=== PATIENT | male | born 1950 | race Caucasian/White ===

== ENCOUNTER 2020-10-22 10:27 | Outpatient (CLI) | payer MEDICARE, MEDICAID | END 2020-10-22 10:28 | disposition home or self-care (01) | LOC: COV 10:27 | PROVIDERS: ATTEND Family Medicine | DX: R05 Cough (principal); R06.02 Shortness of breath; M79.10 Myalgia, unspecified site; R53.83 Other fatigue; R68.83 Chills (without fever); R07.0 Pain in throat; R09.81 Nasal congestion; J34.89 Other specified disorders of nose and nasal sinuses; Z20.828 Contact with and (suspected) exposure to other viral communicable diseases ==

== ENCOUNTER 2021-12-01 08:00 | Outpatient (CLI) | payer MEDICARE, MEDICAID ==
--- NOTE | 2021-12-01 11:24 | XRAY Report ---
PROCEDURE: Chest 2 View X-Ray INDICATIONS: COUGH TECHNIQUE: 2 view(s) of the chest. COMPARISON: None. FINDINGS: SUPPORT DEVICES: None. LUNGS/PLEURA: No focal consolidation, pleural effusion or space-occupying pneumothorax. MEDIASTINUM: The cardiomediastinal silhouette is within normal limits. BONES/SOFT TISSUES: No acute abnormality. IMPRESSION: 1.No acute cardiopulmonary abnormality. Reviewed by: Oh Koenig MD on 12/01/2021 11:22 AM [facility] Approved by: Oh Koenig MD on 12/01/2021 11:22 AM [facility] Station ID: [id number]
== END 2021-12-01 23:59 ==
LOC: DI.S 08:00
PROVIDERS: ATTEND Registered Nurse
DX: R05.9 Cough, unspecified (principal); U07.1 COVID-19
CPT/HCPCS: 71046; U0004

== ENCOUNTER 2022-12-18 16:03 | Outpatient (CLI) | payer MEDICARE, MEDICAID | END 2022-12-18 16:04 | disposition critical access hospital (66) | LOC: EMS 16:03 | DX: R41.0 Disorientation, unspecified (principal); R51.9 Headache, unspecified; H53.8 Other visual disturbances | CPT/HCPCS: A0425; A0429 ==

== ENCOUNTER 2022-12-18 16:38 | Emergency (ER) | payer MEDICARE, MEDICAID ==
--- NOTE | 2022-12-18 16:52 | ED Physician Documentation ---
PD HPI ALTERED MENTAL STATUS - Stated complaint Stated Complaint: CONFUSION/BLURRY VISION - History obtained from History obtained from: Patient
[2022-12-18] MEDS ORDERED: ONDANSETRON 4 MG/2 ML VIAL IVP STA (17:44)
[2022-12-18] MEDS ORDERED: KETOROLAC 15 MG/ML VIAL IVP STA (17:44)
[2022-12-18] MEDS ORDERED: HYDROmorphone 0.5 MG/0.5 ML SYRINGE IVP STA ×2 (17:44→19:06)
[2022-12-18] MEDS ORDERED: SODIUM CHLORIDE 0.9% 1,000 ML IV STA (17:44)
--- NOTE | 2022-12-18 17:47 | ED Physician Documentation ---
PD HPI NVD - Stated complaint Stated Complaint: CONFUSION/BLURRY VISION - Chief complaint Chief Complaint: Neuro - History obtained from History obtained from: Patient - History of Present Illness Timing - onset: Today (about noon) Timing - duration: Hours Timing - details: Abrupt onset Associated symptoms: Fever, Loss of appetite, Other (He notes fairly abrupt onset of general malaise, nausea, vomiting associated with headache and general weakness. He states he did have some blurred vision with it. He denies persistent blurred vision or eye pain.). No: Abdominal pain, Chest pain Contributing factors: No: Sick contact, Travel, Anticoagulated, Diabetes Improved by: No: Vomiting (He has been having repetitive vomiting with persistent nausea. No abdominal pain per se. No diarrhea.) Worsened by: Eating Similar symptoms before: Has not had sx before Recently seen: Not recently seen Review of Systems Constitutional: reports: Fatigue. denies: Fever, Chills Eyes: reports: Decreased vision. denies: Loss of vision, Photophobia, Discharge, Irritation Nose: denies: Rhinorrhea / runny nose, Congestion Throat: denies: Sore throat Cardiac: denies: Chest pain / pressure Respiratory: denies: Cough GI: reports: Nausea, Vomiting. denies: Abdominal Pain Musculoskeletal: denies: Neck pain, Back pain Neurologic: reports: Generalized weakness, Confused (felt some difficulty concentrating earlier when vomiting.), Headache. denies: Focal weakness, Numbness, Head injury PD PAST MEDICAL HISTORY - Past Medical History Past Medical History: Yes Cardiovascular: Hypertension Respiratory: None Endocrine/Autoimmune: None - Allergies Allergies/Adverse Reactions: Allergies Allergy/AdvReac Type Severity Reaction Status Date / Time No Known Drug Allergies Allergy Verified 12/18/22 17:52 - Social History Does the pt smoke?: Yes Smoking Status: Current every day smoker Does the pt drink ETOH?: No Does the pt have substance abuse?: Yes Substance Use and Type: Marijuana - POLST Patient has POLST: No PD ED PE NORMAL - Vitals Vital signs reviewed: Yes - General General: Alert and oriented X 3, Well developed/nourished, Other (appears uncomfortable holding emesis bag with some vomiting between answering questions. ) - HEENT HEENT: Pharynx benign - Neck Neck: Supple, no meningeal sign, No adenopathy - Cardiac Cardiac: RRR, No murmur - Respiratory Respiratory: Clear bilaterally - Abdomen Abdomen: Normal bowel sounds, Non tender, Non distended, No organomegaly - Derm Derm: Warm and dry. No: Normal color (mild pallor) - Extremities Extremities: Normal ROM s pain - Neuro Neuro: Alert and oriented X 3, No motor deficit, Normal speech Results - Vitals Vitals: Vital Signs - 24 hr 12/18/22 12/18/22 16:47 21:39 Temperature 37.6 C 38.6 C H Heart Rate 73 Respiratory 20 Rate Blood Pressure 100/83 H O2 Saturation 100 Oxygen O2 Source Room air - Labs Labs: Laboratory Tests 12/18/22 12/18/22 12/18/22 18:33 18:33 18:33 WBC 8.4 RBC 4.34 L Hgb 12.6 L Hct 39.0 L MCV 89.9 MCH 29.0 MCHC 32.3 RDW 12.2 Plt Count 107 L MPV 11.1 Neut # (Auto) 6.8 H Lymph # (Auto) 1.0 L [place]ade # (Auto) 0.5 Eos # (Auto) 0.1 Baso # (Auto) 0.0 Absolute Nucleated RBC 0.00 Nucleated RBC % 0.0 ESR 11 Sodium 134 L Potassium 5.1 H Chloride 99 L Carbon Dioxide 25 Anion Gap 10.0 BUN 30 H Creatinine 1.5 H Estimated GFR (MDRD) 46 L Glucose 141 H Calcium 8.9 Magnesium 1.7 Total Bilirubin 0.7 AST 19 ALT 15 Alkaline Phosphatase 54 Total Protein 7.3 Albumin 4.1 Globulin 3.2 Albumin/Globulin Ratio 1.3 Lipase 71 H Nasal Adenovirus (PCR) Nasal B. parapertussis DNA (PCR) Nasal Coronavir 229E PCR Nasal Coronavir HKU1 PCR Nasal Coronavir NL63 PCR Nasal Coronavir OC43 PCR Nasal Enterovir/Rhinovir PCR Nasal Influenza B PCR Nasal Influenza A PCR Nasal Parainfluen 1 PCR Nasal Parainfluen 2 PCR Nasal Parainfluen 3 PCR Nasal Parainfluen 4 PCR Nasal RSV (PCR) Nasal B.pertussis DNA PCR Nasal C.pneumoniae (PCR) Tarik Human Metapneumo PCR Nasal M.pneumoniae (PCR) Nasal SARS-CoV-2 (PCR) 12/18/22 18:47 WBC RBC Hgb Hct MCV MCH MCHC RDW Plt Count MPV Neut # (Auto) Lymph # (Auto) [place]ade # (Auto) Eos # (Auto) Baso # (Auto) Absolute Nucleated RBC Nucleated RBC % ESR Sodium Potassium Chloride Carbon Dioxide Anion Gap BUN Creatinine Estimated GFR (MDRD) Glucose Calcium Magnesium Total Bilirubin AST ALT Alkaline Phosphatase Total Protein Albumin Globulin Albumin/Globulin Ratio Lipase Nasal Adenovirus (PCR) NOT DETECTED Nasal B. parapertussis DNA (PCR) NOT DETECTED Nasal Coronavir 229E PCR NOT DETECTED Nasal Coronavir HKU1 PCR NOT DETECTED Nasal Coronavir NL63 PCR NOT DETECTED Nasal Coronavir OC43 PCR NOT DETECTED Nasal Enterovir/Rhinovir PCR NOT DETECTED Nasal Influenza B PCR NOT DETECTED Nasal Influenza A PCR NOT DETECTED Nasal Parainfluen 1 PCR NOT DETECTED Nasal Parainfluen 2 PCR NOT DETECTED Nasal Parainfluen 3 PCR NOT DETECTED Nasal Parainfluen 4 PCR NOT DETECTED Nasal RSV (PCR) NOT DETECTED Nasal B.pertussis DNA PCR NOT DETECTED Nasal C.pneumoniae (PCR) NOT DETECTED Tarik Human Metapneumo PCR NOT DETECTED Nasal M.pneumoniae (PCR) NOT DETECTED Nasal SARS-CoV-2 (PCR) NOT DETECTED - Rads (name of study) chest xray Radiology: Prelim report reviewed, EMP read indepedently (no infiltrates), See rad report PD Medical Decision Making - ED course Complexity details: reviewed results, re-evaluated patient (improved nausea to point of not vomiting still, but has some nausea still. GRACE improved. Can give more meds for both. ), considered differential (nausea and vomiting, with some headache, weakness, lightheaded/blurred vision, and now also fever. Presume flu like illness. Has some headache so can get CT to ensure no SAH/ICH with the vomiting. It is within 8 hours of onset so should be accurate per studies. ), d/w patient Reviewed Lab Results: normal chest xray. wbc ordered and reviewed. Lactate normal without signs of sepsis. Mild elevation of creatinine and potassium c/w volume depletion from vomiting today. ED course: He had onset abruptly this afternoon of generalized symptoms of headache and vomiting, general weakness, fatigue and feverish. This sounds flulike though we can still look for other causes of illness such as pneumonia. He did have a headache associated with the symptoms along with the vomiting so can get a CT scan of the head to ensure there is no intracranial bleed or such. He does not look meningitic on exam so I do not see a need for lumbar puncture. We will get labs to assess for potential sepsis. We will basic electrolytes. We can give him some IV fluids and antiemetic along with some medication for headache. Departure - Departure Clinical Impression: Nausea and vomiting, Headache, Flu-like symptoms Condition: Stable Record reviewed to determine appropriate education?: Yes
[2022-12-18 18:48] LABS: BASOPHILS % (AUTO) 0.2 %; EOSINOPHILS # (AUTO) 0.1 10^3/uL (0.0-0.7); EOSINOPHILS % (AUTO) 0.6 %; HGB - HEMOGLOBIN 12.6 g/dL (14.0-18.0); LYMPHOCYTES % (AUTO) 11.5 %; MEAN CORPUSCULAR HGB CONC 32.3 g/dL (32.0-36.0); MEAN CORPUSCULAR VOLUME 89.9 fL (80.0-94.0); MEAN PLATELET VOLUME 11.1 fL (7.4-11.4); MONOCYTES # (AUTO) 0.5 10^3/uL (0.0-1.0); MONOCYTES % (AUTO) 5.5 %; NEUTROPHILS # (AUTO) 6.8 10^3/uL (1.5-6.6); NEUTROPHILS % (AUTO) 81.8 %; PLT - PLATELET COUNT 107 10^3/uL (130-450); RED BLOOD COUNT 4.34 10^6/uL (4.70-6.10); RED CELL DISTRIBUTION WIDTH 12.2 % (12.0-15.0); WHITE BLOOD COUNT 8.4 x10^3/uL (4.8-10.8)
--- NOTE | 2022-12-18 18:56 | XRAY Report ---
PROCEDURE: Chest 1 View X-Ray INDICATIONS: chest pain TECHNIQUE: One view of the chest was acquired. COMPARISON: 12/01/2021 FINDINGS: Surgical changes and devices: None. Lungs and pleura: Mild generalized interstitial prominence can be seen. Low lung volumes can be seen , causing a crowded appearance to the lung markings. Mediastinum: Mediastinal contours appear normal. Heart size is normal. Calcification is seen of th e aortic arch. Bones and chest wall: No suspicious bony lesions. Age-appropriate degenerative changes are seen. Overlying soft tissues appear unremarkable. IMPRESSION: Mild generalized prominence can be seen. Please consider mild pulmonary edema. Differential diagnosis also includes atypical infiltrate and artifact. No cardiomegaly. Reviewed by: David Banuelos MD on 12/18/2022 5:54 PM [facility] Approved by: David Banuelos MD on 12/18/2022 5:54 PM [facility] Station ID: [id number]
[2022-12-18 19:02] LABS: ALBUMIN 4.1 g/dL (3.2-5.5); ALBUMIN/GLOBULIN RATIO 1.3 (1.0-2.2); BILIRUBIN,TOTAL 0.7 mg/dL (0.2-1.0); CALCIUM 8.9 mg/dL (8.5-10.3); CREATININE 1.5 mg/dL (0.6-1.2); MAGNESIUM 1.7 mg/dL (1.7-2.8); POTASSIUM 5.1 mmol/L (3.5-5.0); TOTAL PROTEIN 7.3 g/dL (6.7-8.2)
[2022-12-18] MEDS ORDERED: DROPERIDOL 5 MG/2 ML VIAL IVP STA (19:06)
[2022-12-18 19:37] LABS: B. PARAPERTUSSIS- RESP PCR PAN NOT DETECTED; B. PERTUSSIS- RESP PCR PANEL NOT DETECTED; C. PNEUMONIAE- RESP PCR PANEL NOT DETECTED; CORONAVIRUS 229E-RESP PCR NOT DETECTED; CORONAVIRUS HKU1-RESP PCR NOT DETECTED; CORONAVIRUS NL63-RESP PCR NOT DETECTED; CORONAVIRUS OC43-RESP PCR NOT DETECTED; HUMAN METAPNEUMOVIRUS NOT DETECTED; INFLUENZA A- RESP PCR PANEL NOT DETECTED; INFLUENZA B - RESP PCR PANEL NOT DETECTED; M. PNEUMONIAE- RESP PCR PANEL NOT DETECTED; PARAINFLUENZA VIRUS 1 NOT DETECTED; PARAINFLUENZA VIRUS 2 NOT DETECTED; PARAINFLUENZA VIRUS 3 NOT DETECTED; PARAINFLUENZA VIRUS 4 NOT DETECTED; RHINOVIRUS/ENTEROVIRUS NOT DETECTED; RSV- RESP PCR PANEL NOT DETECTED; SARS-CoV-2 -RESP PCR PANEL NOT DETECTED
--- NOTE | 2022-12-18 19:40 | CT Report ---
PROCEDURE: HEAD WO INDICATIONS: headache and vomiting TECHNIQUE: Noncontrast 4.5 mm thick angled axial sections acquired from the foramen magnum to the vertex. For r adiation dose reduction, the following was used: automated exposure control, adjustment of mA and/or kV according to patient size. COMPARISON: None FINDINGS: Image quality: Minimal motion degradation CSF spaces: Basal cisterns are patent. Lateral ventricles are symmetric. Volume: Vascular calcifications. Periventricular white matter disease is commonly seen with chronic m icroangiopathy. Volume loss is present. These findings are mild to moderate. Brain: No intracranial hemorrhage. Burden-white differentiation is grossly maintained. Craniofacial structures: Minimal paranasal sinus mucosal thickening. IMPRESSION: No acute intracranial abnormality. If there is concern for parenchymal pathology, consider MRI. Reviewed by: Samir Isabel MD on 12/18/2022 7:39 PM PST Approved by: Samir Isabel MD on 12/18/2022 7:39 PM PST Station ID: [id number]
[2022-12-18] MEDS ORDERED: iohexoL-300 100 ML VIAL ONE (21:25)
--- NOTE | 2022-12-18 22:26 | ED Physician Documentation ---
ED Addendum - Addendum Addendum: 12/18/22 22:17 I received signout on this patient from Dr. Hargrove at the end of his shift. Please see his note for complete history and physical. I evaluated the patient myself at approximately 9:15 PM. I found the patient sitting up on the edge of the bed. He is smiling and conversant but frequently has difficulty with word finding, with many of his answers not making any sense. For example, when I asked him where we are right now, he tells me "hospital". When I asked him if he knows which hospital, he says [place], and continues to try to answer until I move on to next question. He is oriented to self, he says the year is 2021 but quickly corrects himself to say 2022. He knows we are in a hospital and almost was able to state [place]; I sense that he is oriented x3 but based on other parts of our conversation, he seems to be possibly having expressive aphasia. When fumbling to give some answers, he frequently smiles, even laughs, giving the impression to me that he knows the answer but is having difficulty saying it. When I asked him what problem brought him to the emergency department tonight, he does a lot of word searching and gives odd answers, such as "I was having The blood was not right And, you know, then they ask you to lie down on the sheet". He is completely awake and alert (not somnolent, not slow in trying to provide answers). He follows all commands quickly and appropriately. I performed a neurologic exam and he does not have any focal nor general deficits in strength, sensation; he has symmetric facies and cranial nerves II- XII are intact. I then ordered CTA head and neck due to suspicion of stroke; even if this were to be the final diagnosis, he is not within a window for thrombolytics. Before the studies were undertaken, I was then informed by the ED RN taking care of this patient that he has spiked up a fever to 39.1. I ordered acetaminophen. I reexamined patient and there is no change from my exam, above. Also note that there is no meningismus.A urinalysis and lactate level are added to his orders. The respiratory PCR panel was negative for the viruses tested, and he has a normal white blood cell count as well as a normal ESR. 12/19/22 08:27 Both urinalysis and the lactate level results are normal.There were no concerning nor diagnostic findings on the CTA of the head and neck; Radiologist does note minimal narrowing of less than 25% of the left carotid bulb due to a minimal calcified plaque. On reevaluation, the fever has resolved and patient is awake, alert, oriented x3. He answers questions quickly and accurately. He exhibits no difficulty with word finding or expressing his thoughts. When I ask him again why he came to the emergency department tonight, this time he is able to quickly and clearly answer that he was having difficulty with his thoughts and feeling a little confused and thus he called 911. I performed an NIHSS at this point, and his score is 0. This, of course, includes reading words and sentences as well as identifying the pictured objects and describing what is happening in the picture that is part of the NIHSS. At this point, although because of his fever and symptoms are not apparent on the tests obtained thus far, further testing in the emergency department or inpatient is not indicated. Patient indicates to me that he is comfortable with being discharged and will return immediately if he is feeling abnormal in any way. I instructed him to follow-up with his primary care provider even if he does not have any recurrence of symptoms. Reviewed his blood tests with him, emphasizing the abnormal kidney tests and the need for follow-up for repeat testing for this as well. Patient's BUN was 30 on initial test, 33 on the repeat. His creatinine was 1.5 on the initial test and 1.8 on repeat. His potassium was minimally elevated (5.1) on both initial and repeat test he did have a drop in hemoglobin from the 12.6 to 10.9; as he did not have any bleeding including no passing of blood in his stool and no dark, black, tarry stool during his entire ER stay, I suspect this shift in hemoglobin is due to dilution (due to IV fluids that were given during his stay).
[2022-12-18] MEDS ORDERED: ACETAMINOPHEN 325 MG TABLET PO STA (22:27)
[2022-12-18] MEDS ORDERED: iohexoL-300 100 ML VIAL IVP ONE (23:06)
[2022-12-18 23:13] LABS: MUDS CUTOFF CONCENTRATIONS CUTOFF CONC BELOW:
[2022-12-18 23:22] LABS: BILIRUBIN,URINE NEGATIVE (NEGATIVE); GLUCOSE, URINE (UA) NEGATIVE (NEGATIVE); KETONES,URINE (UA) TRACE mg/dL (NEGATIVE); LEUKOCYTE ESTERASE, URINE NEGATIVE (NEGATIVE); NITRITE,URINE NEGATIVE (NEGATIVE); OCCULT BLOOD,URINE TRACE-INTA (NEGATIVE); PH,URINE 5.5 PH (5.0-7.5); PROTEIN,URINE NEGATIVE (NEGATIVE); UROBILINOGEN,URINE 0.2 (NORMAL) E.U./dL (NORMAL)
[2022-12-18 23:23] LABS: CLARITY,URINE CLEAR (CLEAR)
--- NOTE | 2022-12-18 23:29 | CT Report ---
PROCEDURE: ANGIO HEAD W/WO INDICATIONS: L sided facial droop CONTRAST: 100 ml omni 300 at 0 sec, surestart, and 60 sec delay. TECHNIQUE: Precontrast 4.5 mm thick angled axial sections acquired from the foramen magnum to the vertex. Afte r the administration of intravenous contrast, 1 mm thick sections acquired through the [place] of [place] is. Postcontrast 4.5 mm thick sections then re-acquired from the foramen magnum to the vertex. 3-di mensional dxdmdfz-eithdwdab-ftkkphfmes (MIP) and/or volume rendering reformats were acquired of the c entral intracranial vasculature. For radiation dose reduction, the following was used: automated ex posure control, adjustment of mA and/or kV according to patient size. COMPARISON: Prior head CT 12/18/2022 FINDINGS: Image quality: Excellent. BRAIN: CSF spaces: There is mild cerebral volume loss with prominence of the ventricles and sulci. Basal ci sterns are patent. No extra-axial fluid collections. Brain: No intracranial hemorrhage, mass, or mass effect. Burden-white matter interface is preserved. N o abnormal intracranial enhancement. Skull and face: Calvarium and facial bones appear intact, without suspicious lesions. Orbits appear normal. Sinuses: Sinuses and mastoids are clear. HEAD CT ANGIOGRAPHY: Anterior circulation: Intracranial internal carotid arteries are normal in size and appear patent bi laterally. There is mild atherosclerotic calcification along the cavernous segments of the internal carotid arteries. The paired anterior cerebral arteries appear patent bilaterally. The anterior com municating artery also appears patent. The middle cerebral arteries appear patent bilaterally. No hi gh-grade stenosis, occlusion, or filling defects. No cerebral aneurysms identified. Posterior circulation: Visualized portions of the vertebral arteries appear patent. There is a sligh tly diminutive left vertebral artery likely reflecting a dominant vertebrobasilar system. The left ve rtebral artery appears to terminate in a posterior inferior cerebellar artery. The basilar artery laurence ears supplied by the right vertebral artery. The posterior cerebral arteries appears patent bilateral ly. No high-grade stenosis, occlusion, or filling defects. No cerebral aneurysms identified. IMPRESSION: 1. No definite acute intracranial abnormality. 2. No high-grade stenosis or occlusion of the head and neck arteries. Reviewed by: Jerman Dudley MD on 12/18/2022 11:39 PM PST Approved by: Jerman Dudley MD on 12/18/2022 11:39 PM PST Station ID: [id number]
[2022-12-18 23:32] LABS: AMPHETAMINE SCREEN,URINE NEGATIVE (NEGATIVE); BARBITURATE SCREEN,UR NEGATIVE (NEGATIVE); BENZODIAZEPINES SCREEN, URINE NEGATIVE (NEGATIVE); COCAINE SCREEN URINE NEGATIVE (NEGATIVE); METHADONE SCREEN, URINE POSITIVE (NEGATIVE); METHAMPHETAMINES SCREEN, URINE NEGATIVE (NEGATIVE); OPIATE SCREEN, URINE POSITIVE (NEGATIVE); OXYCODONE SCREEN, URINE NEGATIVE (NEGATIVE); PROPOXYPHENE SCREEN, URINE NEGATIVE (NEGATIVE); THC CANNABINOID SCREEN, URINE POSITIVE (NEGATIVE); TRICYCLIC ANTIDEPRESSANT,URINE NEGATIVE (NEGATIVE)
--- NOTE | 2022-12-18 23:36 | CT Report ---
PROCEDURE: ANGIO NECK W INDICATIONS: L sided facial droop, L neck pain CONTRAST: 100 ml omni 300 at 0 sec, surestart, and 60 sec delay. TECHNIQUE: After the administration of intravenous contrast, 1.5 mm axial sections acquired from the aortic arch to the [place] of [place]. Coronal 3-D maximum intensity projection (MIP) and/or volume rendering ref ormats were then performed. For radiation dose reduction, the following was used: automated exposur e control, adjustment of mA and/or kV according to patient size. COMPARISON: Concurrent CTA of the head. FINDINGS: Image quality: There is motion artifact limiting evaluation. NECK CT ANGIOGRAPHY: Carotid system: The great vessels demonstrate a conventional anatomy as they arise from the aortic a rch. The origins of the common carotid arteries appear patent. The common carotid arteries demonstr ate normal caliber and courses. There is minimal calcified plaque in the left carotid bulb with assoc iated minimal narrowing of less than 25%. Right carotid bulb is widely patent. The internal carotid a rteries demonstrate normal calibers and courses. Posterior circulation: The origins of the vertebral arteries both appear patent. The visualized vert ebral arteries appear patent. Subsequent portions of the vertebral arteries also appear patent bilate rally. There is a right dominant vertebral basilar system with a diminutive left vertebral artery whi ch does not supply a pseudoaneurysm. Findings suggest a possible aneurysm. The left vertebral artery terminates in a posterior inferior cerebellar artery. Soft tissues: Visualized neck soft tissues demonstrate no suspicious abnormalities. Bones: No suspicious bony lesions. There is multilevel degenerative disc disease and facet joint ar thropathy. IMPRESSION: 1. No high-grade stenosis or occlusion of the head and neck arteries. The estimate of stenosis included in the report of the imaging study was calculated using the NASCET method Reviewed by: Jerman Dudley MD on 12/18/2022 11:46 PM PST Approved by: Jerman Dudley MD on 12/18/2022 11:46 PM PST Station ID: [id number]
[2022-12-19 03:44] LABS: BASOPHILS % (AUTO) 0.2 %; EOSINOPHILS % (AUTO) 0.1 %; HCT - HEMATOCRIT 33.5 % (42.0-52.0); HGB - HEMOGLOBIN 10.9 g/dL (14.0-18.0); LYMPHOCYTES # (AUTO) 1.8 10^3/uL (1.5-3.5); LYMPHOCYTES % (AUTO) 17.9 %; MEAN CORPUSCULAR HEMOGLOBIN 29.1 pg (27.0-31.0); MEAN CORPUSCULAR HGB CONC 32.5 g/dL (32.0-36.0); MEAN CORPUSCULAR VOLUME 89.3 fL (80.0-94.0); MONOCYTES # (AUTO) 0.7 10^3/uL (0.0-1.0); MONOCYTES % (AUTO) 7.5 %; NEUTROPHILS # (AUTO) 7.3 10^3/uL (1.5-6.6); NEUTROPHILS % (AUTO) 74.1 %; PLT - PLATELET COUNT 94 10^3/uL (130-450); RED BLOOD COUNT 3.75 10^6/uL (4.70-6.10); RED CELL DISTRIBUTION WIDTH 12.3 % (12.0-15.0); WHITE BLOOD COUNT 9.8 x10^3/uL (4.8-10.8)
[2022-12-19 03:57] LABS: ALBUMIN 3.5 g/dL (3.2-5.5); ALBUMIN/GLOBULIN RATIO 1.3 (1.0-2.2); BILIRUBIN,TOTAL 0.6 mg/dL (0.2-1.0); CALCIUM 8.4 mg/dL (8.5-10.3); CREATININE 1.8 mg/dL (0.6-1.2); POTASSIUM 5.1 mmol/L (3.5-5.0); TOTAL PROTEIN 6.2 g/dL (6.7-8.2)
[2022-12-19 05:55] VITALS: BP 110/47
== END 2022-12-19 05:55 | disposition home or self-care (01) ==
LOC: EDUNIT# → ED 16:38
DX: R11.2 Nausea with vomiting, unspecified (principal); R51.9 Headache, unspecified; R53.1 Weakness; R53.83 Other fatigue; R50.9 Fever, unspecified; F17.200 Nicotine dependence, unspecified, uncomplicated; Z20.822 Contact with and (suspected) exposure to COVID-19
CPT/HCPCS: 36415; 70450; 70496; 70498; 71045; 80053; 80306; 81003; 83605; 83690; 83735; 85025; 85651; 87633; 96361; 96374; 96375; 96376; 99284; A9270; J1170; Q9967; 81001; 87086

== ENCOUNTER 2023-09-17 10:33 | Outpatient (CLI) | payer MEDICARE, MEDICAID ==
--- NOTE | 2023-09-17 11:50 | XRAY Report ---
PROCEDURE: Wrist 3 View RT INDICATIONS: UNSPECIFIED SUPERFICIAL INJUSTY OR R WRIST TECHNIQUE: 3 views of the wrist were acquired. COMPARISON: None FINDINGS: Bones: No fractures or dislocations. No suspicious bony lesions. Amorphous calcific density noted i n the triangular fibrocartilage. Joint spaces are relatively preserved Soft tissues: No suspicious soft tissue calcifications or masses. IMPRESSION: No acute fracture or foreign body. Calcific density in the trianglar fibrocartilage may be degenerative or reflect prior procedure Reviewed by: Tom Perea MD on 09/17/2023 10:49 AM [facility] Approved by: Tom Perea MD on 09/17/2023 10:49 AM [facility] Station ID: [id number]
== END 2023-09-17 10:34 | disposition home or self-care (01) ==
LOC: DI 10:33
PROVIDERS: ATTEND Physician Assistant
DX: S60.911A Unspecified superficial injury of right wrist, initial encounter (principal)

== ENCOUNTER 2023-10-22 02:25 | Outpatient (CLI) | payer MEDICARE, MEDICAID | END 2023-10-22 23:59 | disposition left against medical advice (07) | LOC: EMS 02:25 | DX: R50.9 Fever, unspecified (principal); R00.0 Tachycardia, unspecified ==

== ENCOUNTER 2024-05-16 08:00 | Outpatient (CLI) | payer MEDICARE, MEDICAID | END 2024-05-16 23:59 | disposition home or self-care (01) | LOC: LAB.S 08:00 | PROVIDERS: ATTEND Emergency Medicine | DX: R05.9 Cough, unspecified (principal) ==

== ENCOUNTER 2024-05-19 07:00 | Outpatient (CLI) | payer MEDICARE, MEDICAID ==
--- NOTE | 2024-05-19 18:43 | XRAY Report ---
PROCEDURE: Chest 2V INDICATIONS: COUGH TECHNIQUE: 2 views of the chest were acquired. COMPARISON: Chest x-ray 12/18/2022 FINDINGS: Surgical changes and devices: None. Lungs and pleura: No pleural effusions or pneumothorax. Lungs are clear. Mediastinum: Mediastinal contours appear normal. Heart size is normal. Bones and chest wall: No suspicious bony lesions. Overlying soft tissues appear unremarkable. IMPRESSION: No acute cardiopulmonary process. Reviewed by: Cecile Chris MD on 05/19/2024 6:42 PM PDT Approved by: Cecile Chris MD on 05/19/2024 6:42 PM PDT Station ID: [id number]
== END 2024-05-19 23:59 | disposition home or self-care (01) ==
LOC: DI.S 07:00
PROVIDERS: ATTEND Emergency Medicine
DX: R05.9 Cough, unspecified (principal)

== ENCOUNTER 2024-05-19 16:26 | Emergency (ER) | payer MEDICARE, MEDICAID ==
--- NOTE | 2024-05-19 17:47 | ED Physician Documentation ---
History of Present Illness - Stated complaint Stated Complaint: COUGH,CHEST PX - Chief complaint Chief Complaint: Resp - Additonal information Additional information: 74-year-old male presents to the emergency department chief complaint shortness of breath. Reports cough and shortness of breath ongoing x 2-3 weeks. Past medical significant for COPD. Has been using his inhaler at home with minimal relief. Was started on a course of prednisone a few days ago. Reports was diagnosed with influenza few days ago. Was seen by primary care earlier today and referred to the emergency department with concern for pneumonia and hypoxic res piratory failure. Reports currently he feels much better after the breathing treatment he received prior to arrival. Denies any chest pain, abdominal pain, nausea, vomiting, diarrhea, constipation. Review of Systems Constitutional: reports: Fever Eyes: denies: Loss of vision Ears: denies: Loss of hearing Nose: denies: Rhinorrhea / runny nose Respiratory: reports: Dyspnea, Cough, Wheezing GI: denies: Abdominal Pain, Nausea, Vomiting : denies: Dysuria PD PAST MEDICAL HISTORY - Past Medical History Cardiovascular: Hypertension Respiratory: None Endocrine/Autoimmune: None - Present Medications Home Medications: Ambulatory Orders Medication Instructions Recorded Confirmed Albuterol 2.5 mg INH Q4H PRN #30 ml 05/19/24 Albuterol Sulf [Ventolin Hfa 1 - 2 puffs INH Q4HR PRN #1 each 05/19/24 Inhaler] Albuterol Sulf [Ventolin Hfa] 200 puffs INH PRN PRN 05/19/24 05/19/24 Azithromycin [Zithromax] 250 mg PO DAILY #6 tablet 05/19/24 Isosorbide Mononitrate [Isosorbide 120 mg PO DAILY 05/19/24 05/19/24 Mononitrate ER] Methadone HCl 10 mg PO DAILY 05/19/24 05/19/24 Rosuvastatin Calcium 5 mg PO DAILY 05/19/24 05/19/24 Tamsulosin [Flomax] 0.4 mg PO DAILY 05/19/24 05/19/24 calcitrioL [Rocaltrol] 0.25 mcg PO DAILY 05/19/24 05/19/24 cloNIDine [Catapres] 0.1 mg PO BID 05/19/24 05/19/24 clonazePAM [Clonazepam] 0.5 mg PO HS 05/19/24 05/19/24 hydroCHLOROthiazide [Hydrodiuril] 25 mg PO DAILY 05/19/24 05/19/24 predniSONE [Prednisone] 50 mg PO DAILY #5 tablet 05/19/24 - Allergies Allergies/Adverse Reactions: Allergies Allergy/AdvReac Type Severity Reaction Status Date / Time No Known Drug Allergies Allergy Verified 05/19/24 16:31 - Social History Does the pt smoke?: Yes Smoking Status: Current every day smoker Does the pt drink ETOH?: No Does the pt have substance abuse?: Yes - POLST Patient has POLST: No PD ED PE NORMAL - General General: Alert and oriented X 3, No acute distress, Well developed/nourished, Other - HEENT HEENT: Atraumatic, PERRL, EOMI, Ears normal, Moist mucous membranes, Pharynx benign, Dentition benign - Neck Neck: Supple, no meningeal sign, No bony TTP, No adenopathy, Thyroid normal, No JVD, No bruit, C-Spine cleared by NEXUS criteria - Cardiac Cardiac: RRR, No gallop, Strong equal pulses - Respiratory Respiratory: No respiratory distress, Clear bilaterally - Abdomen Abdomen: Normal bowel sounds, Non tender, No organomegaly - Male Male : Deferred - Rectal Rectal: Deferred - Back Back: No CVA TTP - Derm Derm: Normal color - Extremities Extremities: No deformity - Neuro Neuro: Alert and oriented X 3, 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 Relevant findings are: Sinus rhythm with rate 58 bpm. Normal axis. Normal NM, QRS, QTc intervals. No ST segment elevations or T wave inversions. - Labs Labs: Laboratory Tests 05/19/24 05/19/24 05/19/24 17:41 17:41 17:41 WBC 11.2 H RBC 3.98 L Hgb 11.4 L Hct 34.4 L MCV 86.4 MCH 28.6 MCHC 33.1 RDW 12.6 Plt Count 126 L MPV 11.0 Neut # (Auto) 9.6 H Lymph # (Auto) 0.9 L [place] # (Auto) 0.6 Eos # (Auto) 0.0 Baso # (Auto) 0.0 Absolute Nucleated RBC 0.00 Nucleated RBC % 0.0 VBG pH VBG pCO2 VBG pO2 VBG HCO3 VBG Total CO2 VBG O2 Saturation VBG Base Excess Sodium 133 L Potassium 3.7 Chloride 96 L Carbon Dioxide 28 Anion Gap 9.0 BUN 35 H Creatinine 1.6 H Estimated GFR (MDRD) 43 L Glucose 456 H Calcium 8.9 Total Bilirubin 0.3 AST 21 ALT 20 Alkaline Phosphatase 41 L Troponin I High Sens 5.3 B-Natriuretic Peptide Total Protein 6.4 Albumin 3.8 Globulin 2.6 Albumin/Globulin Ratio 1.5 Lipase 57 05/19/24 05/19/24 17:41 17:41 WBC RBC Hgb Hct MCV MCH MCHC RDW Plt Count MPV Neut # (Auto) Lymph # (Auto) [place] # (Auto) Eos # (Auto) Baso # (Auto) Absolute Nucleated RBC Nucleated RBC % VBG pH 7.443 H VBG pCO2 37.7 L VBG pO2 31.2 VBG HCO3 25.2 VBG Total CO2 26.4 VBG O2 Saturation 67.1 VBG Base Excess 1.2 Sodium Potassium Chloride Carbon Dioxide Anion Gap BUN Creatinine Estimated GFR (MDRD) Glucose Calcium Total Bilirubin AST ALT Alkaline Phosphatase Troponin I High Sens B-Natriuretic Peptide 239 H Total Protein Albumin Globulin Albumin/Globulin Ratio Lipase PD Medical Decision Making - ED course Complexity details: reviewed old records, reviewed results, re-evaluated patient, considered differential, d/w patient ED course: 74-year-old male with known history of COPD presents to the emergency department with concern for hypoxia. Was found to be hypoxic with oxygen saturations in the 90s and in outpatient clinic. He also reported that he was recently diagnosed with pneumonia. Chest x-ray does not appear to be available at this time. He is afebrile, he medically stable in no respiratory distress and maintaining adequate oxygen saturations at approximately 94% consistently here in the emergency department. He reports feeling significantly better after the breathing treatment he got prior to arrival. He was offered an additional breathing treatment which she declined. His labs are all generally reassuring. He has a minimal elevation in white blood cell count however he is currently in the middle of a short course of prednisone. The remainder of his labs are either within normal limits are otherwise nonactionable. He has clear aeration in all lung fontenot and I have no concern for pneumothorax or a large pulmonary consolidation. He was offered a repeat chest x-ray which she declined. Given that he reports he was diagnosed with pneumonia earlier today I did give him doses Rocephin and azithromycin. He passed an ambulatory trial here in the emergency department without difficulty. We discussed hospitalization versus discharge with medications for symptomatic management as well as a course of antibiotics. At this time he feels comfortable doing that and following up with his primary care doctor. Clear return precautions were given prior to discharge. Departure - Departure Disposition: Home, Self Care Clinical Impression: Moderate COPD (chronic obstructive pulmonary disease) Prescriptions: Albuterol Sulf [Ventolin Hfa Inhaler] 1 - 2 puffs INH Q4HR PRN #1 each PRN Reason: Shortness Of Air/Wheezing Albuterol 2.5 mg INH Q4H PRN #30 ml PRN Reason: Wheezing predniSONE [Prednisone] 50 mg PO DAILY #5 tablet Azithromycin [Zithromax] 250 mg PO DAILY #6 tablet Comments: Thank you for allowing us to care for you today at [facility]. Today in the emergency department you were evaluated for any possible dangerous or life-threatening medical emergency. Your EKG and all of your lab work is all very reassuring. I have written prescriptions for both a metered-dose inhaler as well as albuterol nebulizer treatments for use at home. I would like to extend that your current course of prednisone by few days and I have also written for an oral antibiotic to begin taking tomorrow. As we discussed please follow-up with your primary care doctor soon as possible. If it anytime you have any new or worsening symptoms, particularly if you feel this or you are having worsening shortness of breath please return to the emergency department. Forms: PCP List
[2024-05-19 17:52] LABS: BASOPHILS % (AUTO) 0.1 %; HCT - HEMATOCRIT 34.4 % (42.0-52.0); HGB - HEMOGLOBIN 11.4 g/dL (14.0-18.0); LYMPHOCYTES # (AUTO) 0.9 10^3/uL (1.5-3.5); MEAN CORPUSCULAR HEMOGLOBIN 28.6 pg (27.0-31.0); MEAN CORPUSCULAR HGB CONC 33.1 g/dL (32.0-36.0); MEAN CORPUSCULAR VOLUME 86.4 fL (80.0-94.0); MONOCYTES # (AUTO) 0.6 10^3/uL (0.0-1.0); MONOCYTES % (AUTO) 5.1 %; NEUTROPHILS # (AUTO) 9.6 10^3/uL (1.5-6.6); NEUTROPHILS % (AUTO) 85.2 %; PLT - PLATELET COUNT 126 10^3/uL (130-450); RED BLOOD COUNT 3.98 10^6/uL (4.70-6.10); RED CELL DISTRIBUTION WIDTH 12.6 % (12.0-15.0); VBG PH 7.443 (7.31-7.41); WHITE BLOOD COUNT 11.2 x10^3/uL (4.8-10.8)
[2024-05-19 17:53] LABS: VBG BASE EXCESS 1.2 mmol/L (-2 - +2); VBG HCO3 25.2 mmol/L (23-28); VBG OXYGEN SATURATION 67.1 % (60-80); VBG PCO2 37.7 mmHg (41-51); VBG PO2 31.2 mmHg (25-47); VBG TOTAL CO2 26.4 mmol/L (24-29)
[2024-05-19 18:11] LABS: ALBUMIN 3.8 g/dL (3.2-5.5); ALBUMIN/GLOBULIN RATIO 1.5 (1.0-2.2); BILIRUBIN,TOTAL 0.3 mg/dL (0.2-1.0); CALCIUM 8.9 mg/dL (8.5-10.3); CREATININE 1.6 mg/dL (0.6-1.3); POTASSIUM 3.7 mmol/L (3.5-4.5); TOTAL PROTEIN 6.4 g/dL (6.4-8.9)
[2024-05-19] MEDS: cefTRIAXone 1 GM in SODIUM CHLORIDE 0.9% MINIBAG 100 ML IV STA (18:33)
[2024-05-19] MEDS: AZITHROMYCIN INJ 500 MG in SODIUM CHLORIDE 0.9% 250 ML IV STA (19:15)
[2024-05-19 20:24] VITALS: BP 144/67; O2SAT 94
== END 2024-05-19 20:18 | disposition home or self-care (01) ==
LOC: ED 16:26
DX: J44.9 Chronic obstructive pulmonary disease, unspecified (principal); F17.200 Nicotine dependence, unspecified, uncomplicated; Z79.52 Long term (current) use of systemic steroids
CPT/HCPCS: 36415; 80053; 82803; 83690; 83880; 84484; 85025; 93005; 96365; 96366; 96368; 99284